=== PATIENT | male | born 1965 | race Caucasian/White ===

== ENCOUNTER 2021-02-08 09:17 | Emergency (ER) | payer OTHER ==
[2021-02-08] MEDS ORDERED: HYDROcodone/APAP 5-325MG 1 EACH TAB PO STA (09:42)
[2021-02-08] MEDS ORDERED: LIDOCAINE 1% INJ 10MG/ML (20 ML MDV) SQ ONE (09:42)
[2021-02-08 09:52] VITALS: RESP 16
--- NOTE | 2021-02-08 10:08 | XR ---
Left wrist. HISTORY: Fall with ceramic coffee cup. COMPARISON: None. TECHNIQUE: 2 views of the left wrist were obtained. EYES: There is a large soft tissue defect in the volar aspect of the left wrist. There is a tiny grace-like radiopaque foreign body within the soft tissues. The osseous structures are intact is no fracture or dislocation. Impression: large soft tissue defect over the volar aspect of the left wrist containing a tiny grace-like radiop aque foreign body. The underlying osseous structures are intact.
[2021-02-08] MEDS ORDERED: ceFAZolin 1,000 MG VIAL (IM USE) IM STA (10:27)
[2021-02-08] MEDS ORDERED: ONDANSETRON ODT 4 MG TAB PO STA (10:27)
--- NOTE | 2021-02-08 11:32 | ED ---
Wound/Laceration HPI - General Chief Complaint: Wound/Laceration Stated Complaint: wrist lac Time Seen by Provider: 02/08/21 09:25 Source: patient Mode of arrival: EMS Limitations: no limitations - History of Present Illness Initial Comments: Patient is a 55-year-old male presenting to the emergency Department as a transfer from for a laceration to his left wrist. Patient was holding a cup of coffee and his left hand, he was walking down the stairs and missed the last step, he fell forward landing on the coffee cup which caused a large laceration to the palmar aspect of his left wrist. . The patient's tetanus vaccine, and did put some lidocaine surrounding the wound and sent him here for further evaluation with possible also consult. Not on blood thinners, bleeding is controlled this time. He states his pain number is about a 6/10. He does admit to some very mild numbness in his third and fourth digits on the left hand. He also admits to decreased strength. He is right-hand dominant. No previous injuries or fractures to his left wrist. They did do x-rays at the previous hospital which showed no acute fractures. He denies any other injuries from this fall. He has no further complaints. His vitals are stable. - Related Data Previous Rx's Medication Instructions Recorded Cephalexin [Keflex] 500 mg PO Q6HR 5 Days #20 cap 02/08/21 HYDROcodone/APAP 5-325MG [Cornell 1 tab PO Q6HR PRN 3 Days #12 tab 02/08/21 5-325] Allergies Allergy/AdvReac Type Severity Reaction Status Date / Time Iodinated Contrast Media Allergy Unknown Verified 02/08/21 09:53 morphine Allergy Unknown Verified 02/08/21 09:53 Review of Systems ROS Statement: Those systems with pertinent positive or pertinent negative responses have been documented in the HPI. ROS Other: All systems not noted in ROS Statement are negative. Past Medical History Past Medical History: Diabetes Mellitus, Hyperlipidemia, Hypertension History of Any Multi-Drug Resistant Organisms: None Reported Additional Past Surgical History / Comment(s): eye surgery Past Psychological History: No Psychological Hx Reported Smoking Status: Never smoker Past Alcohol Use History: None Reported Past Drug Use History: None Reported General Exam - General Exam Comments Initial Comments: GENERAL: Patient is well-developed and well-nourished. Patient is nontoxic and in no acute distress. HEAD: Atraumatic, normocephalic. EYES: Pupils equal round and reactive to light, extraocular movements intact, sclera anicteric, conjunctiva are normal. Eyelids were unremarkable. ENT: Moist mucous membranes. NECK: Normal range of motion, supple without lymphadenopathy or JVD. LUNGS: Unlabored respirations. Breath sounds clear to auscultation bilaterally and equal. No wheezes rales or rhonchi. HEART: Regular rate and rhythm without murmurs, rubs or gallops. ABDOMEN: Soft, nontender, normoactive bowel sounds. No guarding, no rebound. No masses appreciated. MUSCULOSKELETAL: Patient has a large 8 cm laceration starting at the center of the left wrist extending proximal, towards the ulna. There is an exposed, lacerated tendon. Bleeding is controlled at this time. Patient has decreased flexion strength and is unable to oppose the pinky. He is neurovascular intact. No clubbing or cyanosis. NEUROLOGICAL: Patient is alert and oriented x 3. SKIN: Warm, Dry, normal turgor, no rashes. Patient has large 8 cm laceration to the palmar aspect of the left wrist, this is a flap with lacerated tendons visible. Limitations: no limitations Course Vital Signs 02/08/21 02/08/21 09:49 11:56 Temperature 98 F 98.2 F Pulse Rate 64 78 Respiratory 16 16 Rate Blood Pressure 127/74 128/74 O2 Sat by Pulse 97 98 Oximetry Procedures - Laceration Laceration #1 Consent Obtained: verbal consent Indication: laceration Site: upper extremity (Left wrist, palmar aspect) Size (cm): 8 Description: flap, irregular Depth: involves muscle layer, involves tendon Anesthetic Used: lidocaine 1% Anesthesia Technique: local infiltration Amount (mls): 9 Pre-repair: irrigated extensively Type of Sutures: nylon Size of Sutures: 4-0 Number of Sutures: 1 Technique: running Patient Tolerated Procedure: well - Orthopedic Splinting/Casting Injury #1 Side: left Upper Extremity Injury Location: wrist Upper Extremity Immobilizer: posterior splint, Nilson wrap, synthetic pre-padded splint Medical Decision Making - Medical Decision Making Patient is a 55-year-old male here with a large 8 cm laceration to his left wrist after he fell on a coffee cup. He is a transfer from . We did not receive imaging from [place], did do an x-ray of the left wrist which showed a very small possible fragment in the left wrist but no acute fracture dislocations. He did receive his tetanus and a lidocaine injection at her previous facility. Patient was given dose of Kefzol here in the ER and pain control. I did speak with Dr. Reddy who recommended loosely closing the wound, splint and they will follow-up with him in the office tomorrow morning. Patient was agreeable to this. I was able to put one running stitch along the wound for approximately closure, bandage and a splint. Patient tolerated this very well. I did give him a prescription to continue with antibiotics and pain medicine. He will also use elevation and ice. He is stable for discharge. Return parameters were discussed the patient he verbalizes understanding. Case discussed with Dr. Hancock. Disposition Clinical Impression: Laceration of left wrist with tendon involvement Disposition: HOME SELF-CARE Condition: Stable Instructions (If sedation given, give patient instructions): Tendon Laceration (ED) Additional Instructions: Please return to the Emergency Department if symptoms worsen or any other concerns. Please keep the splint and dressing in place until follow-up with orthopedics tomorrow morning. Take antibiotic starting tomorrow as directed. May alternate Cornell with Mortrin for pain/swelling relief, every 4 hours. Follow-up with orthopedics. Prescriptions: Cephalexin [Keflex] 500 mg PO Q6HR 5 Days #20 cap HYDROcodone/APAP 5-325MG [Cornell 5-325] 1 tab PO Q6HR PRN 3 Days #12 tab PRN Reason: Pain Is patient prescribed a controlled substance at d/c from ED?: Yes When asked, does pt state using other controlled substances?: No If prescribed controlled substance>3 days was MAPS reviewed?: Prescribed <3 Days If opioid is for acute pain is fill amount 7 days or less?: Yes If Rx opioid, was Start Talking consent form obtained?: Yes Referrals: Nonstaff,Physician [Primary Care Provider] - 1-2 days Anup Reddy MD [STAFF PHYSICIAN] - 1-2 days Time of Disposition: 11:33
[2021-02-08 11:57] VITALS: BP 128/74; PULSE 78; TEMP 98.2
== END 2021-02-08 11:56 | disposition home or self-care (01) ==
LOC: EC 09:17
DX: S61.512A Laceration without foreign body of left wrist, initial encounter (principal); E11.9 Type 2 diabetes mellitus without complications; I10 Essential (primary) hypertension; Z88.5 Allergy status to narcotic agent; Z88.8 Allergy status to other drugs, medicaments and biological substances; W10.8XXA Fall (on) (from) other stairs and steps, initial encounter; Y93.01 Activity, walking, marching and hiking
CPT/HCPCS: 73100; 12004; 99284; 96372; J0690; J2001